=== PATIENT | male | born 1995 | race Caucasian/White ===

== ENCOUNTER 2017-06-07 19:51 | Emergency (ER) | payer OTHER ==
[2017-06-07 20:11] VITALS: BP 117/67
[2017-06-07] MEDS ORDERED: KETOROLAC TROMETHAMINE 30 MG/1ML VIAL IM ONE (20:36)
[2017-06-07] MEDS ORDERED: DEXAMETHASONE SOD PHOS 4 MG/ML VIAL IM ONE (20:36)
--- NOTE | 2017-06-07 20:36 | ED Physician Documentation ---
Lower Extremity Problem - HPI Stated Complaint: Left Knee Pain Chief Complaint: Lower Extremity Problem Additional Information: Left Knee lateral aspect, hurts for 1 week, may have strained it hiking 1 week ago, now with intermittant sharp pain. no other complaints, has not reated it at home. Location of Injury: L knee Onset: days ago Timing: pain intermittent Duration: intermittent episodes Recent Injury: Yes Where: park Severity: mild Quality: pain Exacerbated By: walking, movement Relieved By: rest Associated Symptoms: denies: chest pain, shortness of breath Further Comments: no - ROS CONST: no problems MS/SKIN/LYMPH: none CVS/RESP: none GI/: none EYES/ENT: none NERUO/PSYCH: denies: headache - PAST HX Past History: none PE Risk Factors: none Immunizations: UTD Allergies/Adverse Reactions: Allergies Allergy/AdvReac Type Severity Reaction Status Date / Time No Known Allergies Allergy Unverified 06/07/17 20:11 Home Medications: Ambulatory Orders Medication Instructions Recorded Guaifenesin [Mucinex] 600 mg PO 06/07/17 - SOCIAL HX Smoking History: non-smoker Alcohol Use: none Drug Use: none - FAMILY HX Family History: none - VITAL SIGNS Vital Signs: Vital Signs Temp Pulse Resp BP Pulse Ox 97 F L 64 18 117/67 99 06/07/17 19:55 06/07/17 19:55 06/07/17 19:55 06/07/17 19:55 06/07/17 19:55 Lower Extremity Problem - EXAM General Appearance: no distress Hips: bilateral hip: non-tender Legs: bilateral: non-tender Knees: left: soft tissue tenderness Ankle: bilateral: non-tender Foot: bilateral foot: non-tender Neuro/Tendon: normal sensation, normal motor functions EENT: ENT inspection normal RESPIRATORY: no resp distress JOINT: joints nml. No: click/crepitus, limited ROM, unable to bear weight VASCULAR: no vascular compromise, pulses full/equal NEURO/PSYCH: oriented X3 SKIN: warm/dry, normal color BACK: normal inspection Discharge Clincal Impression: Bursitis of left knee Knee pain, left Qualifiers: Chronicity: acute Qualified Code(s): M25.562 - Pain in left knee Referrals: Primary Doctor,No [Primary Care Provider] - 2 Days Condition: Good Disposition: HOME, SELF-CARE Decision to Admit: NO Date of Decison to Admit: 06/07/17 Decision Time: 20:41
== END 2017-06-07 20:45 | disposition home or self-care (01) ==
LOC: ED 19:51
DX: M70.52 Other bursitis of knee, left knee (principal); Y93.9 Activity, unspecified
CPT/HCPCS: 96372; 99283; J1100; J1885